=== PATIENT | female | born 1970 | race Caucasian/White ===

== ENCOUNTER 2017-04-30 11:58 | Inpatient (IN) | payer MEDICARE, OTHER ==
[~2017-04-30] VITALS: Ht 157.5 cm; Wt 65.8 kg
[~2017-04-30 11:58] MED LIST: ACET325 PO; ALLERCLEAR10 MG PO; ALUMAG30SU PO; BISA10S PR; CEROVITE PO; CITA20 PO; CLON1 PO; DOCU100 PO; Hair, Skin & N1 EACH PO; LAMO100 PO; LEVE500 PO; LEVSOD75 PO; LIONS MANE PO; LITH300C PO; LOPE2C; LORA.5; LORA.5 PO; LORA1 PO; LORA10 PO; Lamictal150 MG PO; Milk Of Ma400 MG/5 M PO; NYST100TC TOP; OLAN10 IM; OLAN10 PO; OLAN5 PO; PHENY100ER PO; QUET25 PO; SENN187 PO; Senna Laxative8.6 MG PO; Senna8.6 MG PO; ZINCODVICR TOP; [UNRECOGNIZED DRUG - OTHER] PO
[2017-04-30 13:23] LABS: BASOPHILS ABSOLUTE AUTO 0.05 K/mm3 (0.00-0.23); BASOPHILS PERCENT AUTO 0 % (0-2); EOSINOPHILS ABSOLUTE AUTO 0.01 K/mm3 (0.00-0.68); EOSINOPHILS PERCENT AUTO 0 % (0-6); Hematocrit 45.3 % (33.0-51.0); IMMATURE GRAN ABSOLUTE AUTO 0.04 K/mm3 (0.00-0.10); IMMATURE GRAN PERCENT AUTO 0 % (0-1); LYMPHOCYTES ABSOLUTE AUTO 1.57 K/mm3 (0.84-5.20); LYMPHOCYTES PERCENT AUTO 13 % (21-46); MONOCYTES ABSOLUTE AUTO 0.64 K/mm3 (0.16-1.47); MONOCYTES PERCENT AUTO 5 % (4-13); Mean Corpuscular HGB 29.4 pg (26.0-34.0); Mean Corpuscular HGB Conc 33.1 g/dL (31.5-36.5); Mean Corpuscular Volume 89 fL (80-100); Mean Platelet Volume 10.2 fL (9.1-12.4); NEUTROPHILS PERCENT AUTO 82 % (41-73); Platelet Count 265 K/mm3 (150-400); RDW Coefficient Variation 12.1 % (11.7-14.2); RDW Standard Deviation 39.9 fL (35.1-46.3); White Blood Cell Count 12.51 K/mm3 (4.00-11.30)
[2017-04-30 13:47] LABS: Alanine Aminotransfer (ALT/SGP 18 U/L (12-78); Albumin, Blood 3.8 g/dL (3.4-5.0); Albumin/Globulin Ratio 1.1 (0.8-1.8); Alk Phos 62 U/L (50-136); Anion Gap 8 mmol/L (6-16); Aspartate Aminotrans (AST/SGOT 7 U/L (12-37); Bilirubin, Total 0.3 mg/dL (0.1-1.0); Blood Urea Nitrogen 14 mg/dL (8-24); Bun/Creatinine Ratio 23.3 (12.0-20.0); CO2, Blood 25 mmol/L (21-32); Calcium, Blood 9.1 mg/dL (8.5-10.1); Chloride, Blood 108 mmol/L (98-108); Globulin, Blood 3.6 g/dL (2.2-4.0); Glomerular Filtration Rate >60 (60-); Glucose, Blood 97 mg/dL (70-99); Potassium, Blood 4.1 mmol/L (3.5-5.5); Sodium, Blood 141 mmol/L (136-145); Total Protein, Blood 7.4 g/dL (6.4-8.2)
[2017-04-30 14:18] LABS: Source, Urine Catheter
[2017-04-30 14:18] LABS: Influenza A Negative (NEGATIVE); Influenza B Negative (NEGATIVE)
[2017-04-30 14:21] LABS: Bilirubin, Urine Neg (Neg); Blood, Urine 2+ (Neg); Glucose Qualitative, Urine Neg (Neg); Ketones, Urine 3+ (Neg); Leukocyte Esterase, Urine 3+ (Neg); Nitrite, Urine Neg (Neg); Protein, Urine Neg (Neg); Specific Gravity, Urine 1.015 (1.003-1.022); Urobilinogen, Urine NORM (Normal)
[2017-04-30 14:30] LABS: Appearance, Urine Hazy (Clear); Color, Urine Yellow (P-Yellow)
[2017-04-30 14:31] LABS: White Blood Cells, Urine 25-50 /hpf (0-5)
[2017-04-30 14:42] LABS: Squamous Epithelial Cells Few /hpf (Few)
[2017-04-30 14:43] LABS: Bacteria Mod /hpf; Transitional Epithelial Cells Few /hpf (0-Rare)
[2017-04-30] MEDS ORDERED: [UNRECOGNIZED DRUG - OTHER] (15:42)
[2017-04-30] MEDS ORDERED: Keppra1000 MG PO (15:43)
[2017-04-30] MEDS ORDERED: LEVE500 PO (15:44)
[2017-04-30] MEDS ORDERED: LORA2 PO (15:45)
[2017-04-30] MEDS ORDERED: LEVSOD75 PO (15:45)
[2017-04-30] MEDS ORDERED: ACET325 PO (15:48)
[2017-04-30] MEDS ORDERED: Milk Of Ma400 MG/5 M (15:48)
[2017-04-30] MEDS ORDERED: Loperamide2 MG PO (15:50)
[2017-04-30 20:27] LABS: Lithium <0.20 mmol/L (0.60-1.20)
[2017-05-01 05:52] LABS: BASOPHILS ABSOLUTE AUTO 0.05 K/mm3 (0.00-0.23); BASOPHILS PERCENT AUTO 1 % (0-2); EOSINOPHILS ABSOLUTE AUTO 0.07 K/mm3 (0.00-0.68); EOSINOPHILS PERCENT AUTO 1 % (0-6); Hematocrit 46.2 % (33.0-51.0); Hemoglobin 15.1 g/dL (11.5-16.0); IMMATURE GRAN ABSOLUTE AUTO 0.03 K/mm3 (0.00-0.10); IMMATURE GRAN PERCENT AUTO 0 % (0-1); LYMPHOCYTES ABSOLUTE AUTO 2.27 K/mm3 (0.84-5.20); LYMPHOCYTES PERCENT AUTO 26 % (21-46); MONOCYTES ABSOLUTE AUTO 0.87 K/mm3 (0.16-1.47); MONOCYTES PERCENT AUTO 10 % (4-13); Mean Corpuscular HGB 29.8 pg (26.0-34.0); Mean Corpuscular HGB Conc 32.7 g/dL (31.5-36.5); Mean Corpuscular Volume 91 fL (80-100); Mean Platelet Volume 9.8 fL (9.1-12.4); NEUTROPHILS ABSOLUTE AUTO 5.58 K/mm3 (1.96-9.15); NEUTROPHILS PERCENT AUTO 63 % (41-73); Platelet Count 257 K/mm3 (150-400); RDW Coefficient Variation 12.4 % (11.7-14.2); RDW Standard Deviation 41.4 fL (35.1-46.3); Red Blood Cell Count 5.07 M/mm3 (3.80-5.20); White Blood Cell Count 8.87 K/mm3 (4.00-11.30)
[2017-05-01 06:11] LABS: Anion Gap 2 mmol/L (6-16); Blood Urea Nitrogen 14 mg/dL (8-24); Bun/Creatinine Ratio 22.5 (12.0-20.0); CO2, Blood 27 mmol/L (21-32); Chloride, Blood 110 mmol/L (98-108); Creatinine, Blood 0.62 mg/dL (0.40-1.00); Glomerular Filtration Rate >60 (60-); Glucose, Blood 76 mg/dL (70-99); Potassium, Blood 3.2 mmol/L (3.5-5.5); Sodium, Blood 139 mmol/L (136-145)
[2017-05-02] MEDS ORDERED: Lamictal200 MG PO (11:58)
[2017-05-02] MEDS ORDERED: LITH300C PO (12:00)
[2017-05-02] MEDS ORDERED: Lithium Carbon300 MG PO (12:01)
[2017-05-02] MEDS ORDERED: Zyprexa Zydis15 MG PO (12:02)
[2017-05-02] MEDS ORDERED: CEPH500 PO (12:02)
[2017-05-02] MEDS ORDERED: LORA.5 PO (12:03)
== END 2017-05-03 11:27 | disposition home or self-care (01) | DRG 689 ==
LOC: ER 11:58 → MEDS 14:41 → EDPENDDIS 05-02 11:01 → ENPENDDIS 05-02 11:01 → MEDS 05-03 11:27
PROVIDERS: Emergency Medicine; Internal Medicine
DX: N39.0 Urinary tract infection, site not specified (principal); G93.40 Encephalopathy, unspecified; G40.219 Localization-related (focal) (partial) symptomatic epilepsy and epileptic syndromes with complex partial seizures, intractable, without status epilepticus; F03.91 Unspecified dementia, unspecified severity, with behavioral disturbance; B95.5 Unspecified streptococcus as the cause of diseases classified elsewhere; G35 Multiple sclerosis; J45.909 Unspecified asthma, uncomplicated; E03.9 Hypothyroidism, unspecified; F09 Unspecified mental disorder due to known physiological condition; R32 Unspecified urinary incontinence; Z78.1 Physical restraint status; Z74.01 Bed confinement status; Z79.899 Other long term (current) drug therapy; Z88.5 Allergy status to narcotic agent; Z88.0 Allergy status to penicillin; Z88.2 Allergy status to sulfonamides; Z88.8 Allergy status to other drugs, medicaments and biological substances
CPT/HCPCS: 36415; 71045; 80048; 80053; 80178; 81001; 83605; 85025; 87040; 87086; 87804; 99285; J0696; J1650; J2060; J7030; P9612

== ENCOUNTER 2017-05-14 10:09 | Emergency (ER) | payer MEDICARE, OTHER ==
[~2017-05-14] VITALS: Ht 160 cm; Wt 54.4 kg
[~2017-05-14 10:09] MED LIST changes: +CEPH500 PO; +Keppra1000 MG PO; +LORA2 PO; +Lamictal200 MG PO; +Lithium Carbon300 MG PO; +Loperamide2 MG PO; +Milk Of Ma400 MG/5 M; +Zyprexa Zydis15 MG PO; +[UNRECOGNIZED DRUG - OTHER]
[2017-05-14 12:01] LABS: Source, Urine Clean Catch
[2017-05-14 12:05] LABS: Bilirubin, Urine Neg (Neg); Blood, Urine 1+ (Neg); Glucose Qualitative, Urine Neg (Neg); Ketones, Urine Neg (Neg); Leukocyte Esterase, Urine 2+ (Neg); Nitrite, Urine Neg (Neg); Protein, Urine Neg (Neg); Urobilinogen, Urine NORM (Normal)
[2017-05-14 12:15] LABS: Appearance, Urine Clear (Clear); Color, Urine Pale Yellow (P-Yellow)
[2017-05-14 12:18] LABS: Lithium 0.87 mmol/L (0.60-1.20)
[2017-05-14 12:30] LABS: Amorphous Light (0-Heavy); Bacteria Few /hpf; Red Blood Cells, Urine Not Seen /hpf (0-2); Squamous Epithelial Cells Few /hpf (Few); Transitional Epithelial Cells Mod /hpf (0-Rare)
[2017-05-14 12:56] LABS: Hematocrit 46.6 % (33.0-51.0); Hemoglobin 14.9 g/dL (11.5-16.0); Mean Corpuscular HGB 29.7 pg (26.0-34.0); Mean Corpuscular Volume 93 fL (80-100); Mean Platelet Volume 9.9 fL (9.1-12.4); Platelet Count 249 K/mm3 (150-400); RDW Standard Deviation 44.3 fL (35.1-46.3); Red Blood Cell Count 5.01 M/mm3 (3.80-5.20); White Blood Cell Count 11.88 K/mm3 (4.00-11.30)
[2017-05-14 14:36] LABS: Alanine Aminotransfer (ALT/SGP 37 U/L (12-78); Albumin, Blood 3.9 g/dL (3.4-5.0); Albumin/Globulin Ratio 1.1 (0.8-1.8); Alk Phos 70 U/L (50-136); Anion Gap 10 mmol/L (6-16); Aspartate Aminotrans (AST/SGOT 20 U/L (12-37); Bilirubin, Total 0.3 mg/dL (0.1-1.0); Blood Urea Nitrogen 11 mg/dL (8-24); Bun/Creatinine Ratio 15.5 (12.0-20.0); CO2, Blood 24 mmol/L (21-32); Calcium, Blood 9.5 mg/dL (8.5-10.1); Chloride, Blood 109 mmol/L (98-108); Creatinine, Blood 0.71 mg/dL (0.40-1.00); Globulin, Blood 3.4 g/dL (2.2-4.0); Glomerular Filtration Rate >60 (60-); Glucose, Blood 94 mg/dL (70-99); Potassium, Blood 4.4 mmol/L (3.5-5.5); Sodium, Blood 143 mmol/L (136-145); Total Protein, Blood 7.3 g/dL (6.4-8.2)
== END 2017-05-14 14:08 | disposition home or self-care (01) ==
LOC: ER 10:09
PROVIDERS: Emergency Medicine
DX: G40.909 Epilepsy, unspecified, not intractable, without status epilepticus (principal); N39.0 Urinary tract infection, site not specified; G35 Multiple sclerosis; J45.909 Unspecified asthma, uncomplicated; Z88.8 Allergy status to other drugs, medicaments and biological substances; Z88.0 Allergy status to penicillin; Z88.2 Allergy status to sulfonamides; Z88.6 Allergy status to analgesic agent; Z88.5 Allergy status to narcotic agent; Z88.1 Allergy status to other antibiotic agents; Z79.899 Other long term (current) drug therapy
CPT/HCPCS: 36415; 80053; 80175; 80178; 81001; 85027; 87086; 99283; P9612

== ENCOUNTER 2017-06-20 22:09 | Emergency (ER) | payer MEDICARE, OTHER ==
[~2017-06-20] VITALS: Ht 154.9 cm; Wt 45.4 kg
[2017-06-20 23:20] LABS: Anion Gap 10 mmol/L (6-16); Blood Urea Nitrogen 20 mg/dL (8-24); Bun/Creatinine Ratio 21.2 (12.0-20.0); CO2, Blood 27 mmol/L (21-32); Calcium, Blood 9.2 mg/dL (8.5-10.1); Chloride, Blood 108 mmol/L (98-108); Creatinine, Blood 0.95 mg/dL (0.40-1.00); Glomerular Filtration Rate >60 (60-); Glucose, Blood 154 mg/dL (70-99); Potassium, Blood 3.7 mmol/L (3.5-5.5); Sodium, Blood 145 mmol/L (136-145)
== END 2017-06-21 00:50 | disposition home or self-care (01) ==
LOC: ER 22:09
PROVIDERS: Emergency Medicine
DX: G40.901 Epilepsy, unspecified, not intractable, with status epilepticus (principal); J45.909 Unspecified asthma, uncomplicated; Z88.8 Allergy status to other drugs, medicaments and biological substances; Z88.0 Allergy status to penicillin; Z88.2 Allergy status to sulfonamides; Z88.6 Allergy status to analgesic agent; Z88.1 Allergy status to other antibiotic agents; Z79.899 Other long term (current) drug therapy
CPT/HCPCS: 80048; 93005; 93010; 96365; 96375; 99284; J1165; J2060; Q2009

== ENCOUNTER 2017-07-31 19:40 | Emergency (ER) | payer MEDICARE, OTHER ==
[~2017-07-31] VITALS: Ht 152.4 cm; Wt 52.2 kg
== END 2017-07-31 21:53 | disposition home or self-care (01) ==
LOC: ER 19:40
DX: S01.81XA Laceration without foreign body of other part of head, initial encounter (principal); S01.112A Laceration without foreign body of left eyelid and periocular area, initial encounter; R41.82 Altered mental status, unspecified; F03.90 Unspecified dementia, unspecified severity, without behavioral disturbance, psychotic disturbance, mood disturbance, and anxiety; Z88.8 Allergy status to other drugs, medicaments and biological substances; Z88.0 Allergy status to penicillin; Z88.2 Allergy status to sulfonamides; Z88.6 Allergy status to analgesic agent; Z88.5 Allergy status to narcotic agent; Z88.1 Allergy status to other antibiotic agents; Z79.899 Other long term (current) drug therapy; W06.XXXA Fall from bed, initial encounter
CPT/HCPCS: 12011; 99283